=== PATIENT | male | born 1950 | race Caucasian/White ===

== ENCOUNTER 2017-08-22 07:57 | Inpatient (IN) | payer BC ==
[2017-07-21 09:13] VITALS: BMI 35.0
--- NOTE | 2017-07-21 09:54 | PAT Medication Instructions ---
Service Date Jul 21, 2017. Current Home Medication List Lisinopril (Zestril), 20 MG PO QAM Medication Instructions For Your Scheduled Surgery - Hold the following medications the morning of surgery: Lisinopril (Zestril), 20 MG PO QAM If you have any questions please call us at [phone] or [phone] or [phone]
--- NOTE | 2017-07-21 10:35 | DIAGNOSTIC IMAGING REPORT ---
CHEST 2 VIEWS ROUTINE CLINICAL HISTORY: PAT preoperative evaluation COMPARISON STUDY: No previous studies for comparison. FINDINGS: The bones soft tissues and hemidiaphragms are normal. The cardiomediastinal silhouette is normal. The lungs are clear. The pulmonary vasculature is normal. Slight interstitial prominence possibly chronic. IMPRESSION: Chronic change. No acute process. The above report was generated using voice recognition software. It may contain grammatical, syntax or spelling errors. Electronically signed by: Celestino Cantrell M.D. 07/21/2017 10:34 AM Dictated Date/Time: 07/21/2017 10:33 AM
[2017-07-21 11:15] LABS: BASO % 0.6 %; BASO ABS # 0.05 K/uL (0-0.2); EOS % 1.8 %; EOS ABS # 0.16 K/uL (0-0.5); HEMATOCRIT 46.6 % (42-52); HEMOGLOBIN 16.3 g/dL (14.0-18.0); IG# 0.04 K/uL (0.00-0.02); LYMPH % 26.5 %; LYMPH ABS # 2.31 K/uL (1.2-3.4); MEAN CELL VOLUME 93.8 fL (80-100); MEAN CORPUSCULAR HEMOGLOBIN 32.8 pg (25-34); MEAN PLATELET VOLUME 9.6 fL (7.4-10.4); MONO % 8.1 %; MONO ABS # 0.71 K/uL (0.11-0.59); NEUT % 62.5 %; NEUT ABS # 5.45 K/uL (1.4-6.5); PLATELET COUNT 264 K/uL (130-400); RED CELL DISTRIBUTION WIDTH CV 14.1 % (11.5-14.5); WHITE BLOOD COUNT 8.72 K/uL (4.8-10.8)
[2017-07-21 11:25] LABS: PTT PATIENT 27.8 SECONDS (21.0-31.0)
[2017-07-21 11:30] LABS: CALCIUM 9.2 mg/dl (8.5-10.1); POTASSIUM 4.7 mmol/L (3.5-5.1)
[2017-07-21 11:57] LABS: HEMOGLOBIN A1C 5.8 % (4.5-5.6)
--- NOTE | 2017-08-10 11:11 | History and Physical ---
History & Physical Date Aug 10, 2017. Chief Complaint Right knee pain History of Present Illness Mr Thomas is a 66 year old male who complains of right knee pain. He presents with pain and swelling on the right side. He states that the symptoms have been acute on chronic. Patient reports he had a previous football injury when he was a teenager to his right knee and he also reports a new injury to his right knee. The symptoms occur intermittently. The problem is fluctuating. Currently the patient states that the symptoms are moderate-severe. The pain is described as aching, discomforting and throbbing. The symptoms occur intermittently. The symptoms are aggravated by daily activities, ascending stairs, descending stairs , driving, first steps while awake, movement, repetitive activities, sleeping on the affected side and walking. Edmond states that the symptoms are relieved by no specific activity. In addition to right knee pain the patient is also experiencing decreased mobility, difficulty bending, limping, nighttime awakening, pain, stiffness, tenderness and weakness. Pertinent negatives include chills and fever. The patient has had a previous x-ray. Prior NSAIDs include ibuprofen. Patient has had previous therapy. Patient has had arthroscopic surgery. 12/01/1995 Dr. Mike Mccollum performed right knee arthroscopy with PMM, PLM and Removal of loose bodies. Past Medical/Surgical History Hypertension previous right knee scope 1995 ear surgery 2009 Additional History Hypertension: Yes Allergies Coded Allergies: No Known Allergies (Unverified , 07/21/17) Home Medications Scheduled Lisinopril (Zestril), 20 MG PO QAM Physical Examination Skin: warm/dry, no rash Eyes: normal inspection, EOMI, sclerae normal ENT: normal ENT inspection, pharynx normal Head: normocephalic, atraumatic Neck: supple, no adenopathy, trachea midline Respiratory/Chest: lungs clear, normal breath sounds, no respiratory distress Cardiovascular: regular rate, rhythm, no edema, no murmur Abdomen / GI: normal bowel sounds, non tender Addiitonal Comments: Right Knee Physical Exam Exam Findings Details Ankle ROM R * Active ROM - Factors: normal, Description: active pain free range of motion. Hip ROM R * Active ROM - Factors: normal, Description: active pain free range of motion. Passive ROM - Factors: normal, Description: passive pain free range of motion. Knee ROM R * Active ROM - Flexion: 100 degrees, Extension: 5 degrees, Factors: pain, Description: Active painful ROM. Strength LE Normal Strength Description - Normal lower extremity: Bilateral. Knee * Inspection - Gait: Limp. Alignment - Right: varus. Ecchymosis - Right: negative. Effusion - Right: mild. Swelling - Right: mild. Maximum tenderness - Right: Medial Joint Line, proximal fibula. Patella exam - Crepitation - Right: mild. Patella position - Right: neutral. [facility]'s - lateral - Right: Positive. Tha's - medial - Right: Positive. Knee Normal Inspection - Atrophy - Right: Absent. Skin - Right: Normal. Patella exam - Apprehension - Right: Negative. Q-angle - Right: Normal. Posterior drawer - Right: Negative. Anterior drawer - Right: Negative. Valgus stress - Right: Negative. Varus stress - Right: Negative. Extensor lag - Right: Normal. Neurovascular LE Normal Neurovascular examination including reflexes, sensation , and pulses is within normal limits. Right Knee X-Rays: advanced degenerative changes noted right knee with complete loss joint space medial compartment and patellofemoral joint, osteophyte formation noted, subchondral sclerosis. also noted healed proximal fibula fracture. Diagnosis Right knee osteoarthritis -Further care discussed with patient and at this point in time has failed conservative measures and would like to proceed with a right total knee replacement. Plan on discharge will be home with home health physical therapy. DVT prophalaxis with TEDs, SCDs and will also place on aspirin 81 mg p.o. b.i.d. for a month postop. Patient will have follow up appointment in our office two weeks post op for staple/suture removal and re-evaluation. Patient otherwise has no other questions or concerns. Hypertension
[2017-08-22] VITALS (8 sets, daily range): BP systolic 115–156; BP diastolic 70–88; PULSE 61–96; TEMP 36.3–36.8; O2SAT 96–98; Ht 182.9 cm; Wt 109.0 kg
[~2017-08-22] VITALS: Ht 182.9 cm; Wt 109.0 kg
[2017-08-22] MEDS: TRANEXAMIC ACID INJ 1,000 MG x 2 Bags IV SCH ×4 (06:00→06:30)
--- NOTE | 2017-08-22 07:14 | History & Physical Bridge Note ---
H&P Re-Evaluation Bridge Note: I have examined the patient, reviewed the History & Physical and in the interval since the performance of the History & Physical I have noted the following changes of clinical significance: No changes noted
[~2017-08-22 07:57] MED LIST: ACETAMINOPHEN 500 MG TAB PO SCH; BUPIVACAINE 0.25% 30 ML VIAL ONE; BUPIVACAINE 0.5 % 5 MG/1 ML PF 10ML VIAL ONE; CEFAZOLIN 2000MG IV PUSH 15 ML IV SCH; CeleBREX 200 MG CAP PO SCH; DEXAMETHASONE 4 MG TAB PO SCH; GABAPENTIN 600 MG PO SCH; LACTATED RINGER'S 1000ML 1,000 ML IV SCH; LACTATED RINGER'S 1000ML 500 ML IV SCH; LISI-725 PO; METOCLOPRAMIDE HCL 10 MG TAB PO SCH; ROPIVACAINE 5MG/ML 30 ML 150 MG, BUPIVACAINE 0.5% MPF INJ 30 ML, EpINEphrine HCL INJ 0.... INFIL SCH
[2017-08-22] MEDS ORDERED: MIDAZOLAM HCL 1 MG/ML 2ML VIAL ONE (08:12)
[2017-08-22] MEDS ORDERED: ATROPINE SULFATE 0.1 MG/ML 5ML SYR IV PRN (08:45)
[2017-08-22] MEDS ORDERED: EpHEDrine SULFATE INJ 50 MG/ML AMP IV PRN (08:45)
[2017-08-22] MEDS ORDERED: POVIDONE-IODINE OP SOLN 30 ML BTL ONE (09:02)
[2017-08-22] MEDS ORDERED: ORTHO JOINT ANESTHETIC ONE (09:02)
[2017-08-22] MEDS ORDERED: BACITRACIN 50000 UNIT VIAL ONE (09:02)
[2017-08-22] MEDS ORDERED: FENTANYL CITRATE INJ 50 MCG/1 ML 2 ML VIAL ONE (09:49)
--- NOTE | 2017-08-22 10:38 | [facility] Post Operative Brief Note ---
Immediate Operative Summary Operative Date Aug 22, 2017. Pre-Operative Diagnosis Right knee osteoarthritis Post-Operative Diagnosis Right knee osteoarthritis Procedure(s) Performed Right Total Knee Arthroplasty utilizing [employer] journey to patient match total knee arthroplasty size 7 femur 7 tibia 15 Poly [address] Baird Internist Medical Doctor Md Surgeon(s) Celestino Plascencia PA-C Estimated Blood Loss 5 ml Findings Consistent with Post-Op Diagnosis Specimens Permanent Specimen A: Right knee bone and tissue Anesthesia Type MAC Spinal Regional Complication(s) none Disposition Disposition: Recovery Room / PACU
[2017-08-22] MEDS ORDERED: LIDOCAINE HCL 2% 2 ML VIAL (20MG/ML) ONE (10:39)
[2017-08-22] MEDS ORDERED: PROPOFOL IV EMULSION 10 MG/ML 20 ML VIAL IV ONE (10:39)
--- NOTE | 2017-08-22 10:41 | [facility] Operative Report ---
Operative Report Operative Date Aug 22, 2017. Pre-Operative Diagnosis Right knee osteoarthritis Post-Operative Diagnosis Right knee osteoarthritis Procedure(s) Performed Right Total Knee Arthroplasty utilizing [employer] journey to patient match total knee arthroplasty size 7 femur 7 tibia 15 Poly [address] Baird [employer] Teacher Surgeon(s) Celestino Plascencia PA-C Estimated Blood Loss 5 ml Findings Patient presents with severe end-stage tricompartmental degenerative joint disease varus alignment x-rays will be able to subchondral sclerosis marginal osteophytes cystic changes bone the bone changes medial compartment patellofemoral compartment patient with no response to conservative therapy with physical therapy anti-inflammatories relative rest activity modification corticosteroid injections presents for total knee arthroplasty Specimens Permanent Specimen A: Right knee bone and tissue Anesthesia Type MAC Spinal Regional Complication(s) none Disposition Recovery Room / PACU Indications Patient presents with severe end-stage tricompartmental degenerative joint disease varus alignment bone the bone changes subchondral cystic changes sclerosis marginal osteophytes varus alignment no response to conservative therapy. Physical therapy anti-inflammatories relative rest activity medication cortical steroid injections Visco supplementation patient presents for total knee arthroplasty of thorough discussion regarding risk complications Description of Procedure After proper prepping and draping of the Right lower extremity anterior midline incision was made over the region of the extensor extensor mechanism after meticulous hemostasis was obtained and maintained in subcutaneous tissues a medial parapatellar incision was made The patella was subluxed lateralward the medial lateral gutter were cleaned from any hypertrophic synovitis and scar tissue of the distal femoral block was placed and the distal femoral osteotomy cut was made subsequently the chamfers anterior and posterior osteotomy cuts were made utilizing the 4-in-1 block the tibia was subsequently subluxed anteriorward medial and ateral meniscal remnants were excised in their entirety remnants of the anterior and posterior cruciate ligaments were excised in their entirety excellent exposure of the proximal tibia was obtained the tibial osteotomy guide was placed on the proximal tibial osteotomy cut was made once again the knee was irrigated with copious amounts of sterile saline solution the patella was subsequently everted lateralward thickened scar tissue around the patella was removed the patella was subsequently cut utilizing a freehand technique and was drilled prepared for final preparation and placement of patella socially flexion-extension gaps were checked and the equal and symmetric trials were placed to the appropriate femoral and tibial trials with poly-spacer being placed for equal flexion and extension gaps and full range of motion including extension to 0 and flexion to 140 the trial components after having been taken to recovery range of motion was subsequently removed meticulous hemostasis was obtained and maintained subsequently a knee block injection of joint cocktail including ropivacaine 0.5% 150 mg. Bupivacaine 0.5 % epinephrine 1-200,030 mL's toradol 30 mg dexamethasone 4 mg ketamine 10 mg clonidine 100 micrograms normal saline solution 30 mg was infiltrated into the soft tissues of the posterior knee medial lateral gutters and periosteal synovium special attention was paid to protect neurovascular structures at all times subsequently trial components having been removed the knee was irrigated with sterile saline solution. debris was removed the proximal tibia was subsequently prepared and was made ready for the placement of the tibial component tibial component was also cemented and tamped into position the femoral component was subsequently placed and cemented in the position the patellar component was subsequently cemented in position because hemostasis once again obtained and maintained wound having been thoroughly irrigated with debridement and debridement lavage was performed as well as a medial parapatellar incision closed with #1 Vicryl in interrupted fashion subcutaneous was closed with #2 Vicryl skin was closed with skin clips. PA-C was necessary for prepping and drapping as well as wound closure of deep fascia Sub cutaneous tissue and skin and was necessary for the case. A sterile compressive dressing was placed patient was taken to recovery in stable condition of report dictated by Oli I attest to the content of the Intraoperative Record and any orders documented therein. Any exceptions are noted below. I attest to the content of the Intraoperative Record and any orders documented therein. Any exceptions are noted below.
[2017-08-22] MEDS ORDERED: MoRPHine SULFATE 2 MG/ML CARP IV PRN ×2 (11:30→14:00)
[2017-08-22] MEDS ORDERED: SOD PHOSPHATE/SOD BIPHOSPHATE ENEMA 132 ML BTL PR PRN (11:30)
[2017-08-22] MEDS ORDERED: BISACODYL 10 MG SUPP PR PRN (11:30)
[2017-08-22] MEDS ORDERED: ONDANSETRON INJ 2 MG/ML 2 ML VIAL IV PRN (11:30)
[2017-08-22] MEDS ORDERED: MAGNESIUM HYDROXIDE SUSP 30 ML UDC PO PRN (11:30)
[2017-08-22] MEDS ORDERED: ALUMINUM/MAGNESIUM/SIMETH (MAALOX MAX) 30 ML UDC PO PRN (11:30)
[2017-08-22] MEDS ORDERED: KETOROLAC TROMETHAMINE 30 MG/ML VIAL IV. PRN (11:30)
[2017-08-22] MEDS ORDERED: ZOLPIDEM TARTRATE 5 MG TAB PO PRN (11:30)
--- NOTE | 2017-08-22 11:43 | DIAGNOSTIC IMAGING REPORT ---
RIGHT KNEE 2 VIEWS History: Right total knee arthroplasty. Degenerative arthritis. Postop. FINDINGS: The patient is status post a right total knee arthroplasty. The hardware is intact. Surgical drains are in place. There is a healing/healed fibular neck fracture.. IMPRESSION: Right total knee arthroplasty. No evidence for hardware complication. A healing/healed fibular neck fracture is noted. Electronically signed by: Chester Barth M.D. 08/22/2017 11:42 AM Dictated Date/Time: 08/22/2017 11:41 AM
--- NOTE | 2017-08-22 12:01 | Anesthesiology Progress Note ---
Anesthesia Post Op Note Date & Time Aug 22, 2017 at 12:00 Vital Signs Pain Intensity: 0 Vital Signs Past 12 Hours Date Time Temp Pulse Resp B/P (MAP) Pulse Ox O2 Delivery O2 Flow Rate FiO2 08/22/17 11:56 57 14 08/22/17 11:56 55 14 99 08/22/17 11:55 105/71 08/22/17 11:52 36.3 97 Nasal Cannula 2 08/22/17 11:51 57 17 97 08/22/17 11:51 58 17 08/22/17 11:50 108/62 08/22/17 11:46 59 18 08/22/17 11:46 60 18 98 08/22/17 11:45 108/63 08/22/17 11:43 58 18 97 08/22/17 11:43 57 18 08/22/17 11:40 115/67 08/22/17 11:38 60 17 96 08/22/17 11:38 59 17 08/22/17 11:37 61 18 97 08/22/17 11:37 62 18 08/22/17 11:35 106/67 08/22/17 11:32 59 17 99 08/22/17 11:32 58 17 08/22/17 11:30 102/66 08/22/17 11:27 65 17 100 08/22/17 11:27 64 17 08/22/17 11:25 108/67 08/22/17 11:22 36.3 64 16 109/71 98 Oxymask 10 08/22/17 11:22 73 15 08/22/17 11:22 72 15 109/71 100 08/22/17 08:31 36.7 71 20 156/88 98 Room Air Notes Mental Status: alert / awake / arousable, participated in evaluation Pt Amnestic to Procedure: Yes Nausea / Vomiting: adequately controlled Pain: adequately controlled Airway Patency, RR, SpO2: stable & adequate BP & HR: stable & adequate Hydration State: stable & adequate Neuraxial Anesthesia: was administered, sensory block is resolving Anesthetic Complications: no major complications apparent
[2017-08-22] MEDS ORDERED: MoRPHine SULFATE 10 MG/ML CARP/VIAL IV PRN (14:00)
[2017-08-22] MEDS ORDERED: MoRPHine SULFATE 4 MG/ML 1 ML CARP\\VIAL IV PRN (14:00)
[2017-08-22] MEDS: D5W AND 1/2NSS + 20MEQ KCL 1,000 ML IV SCH (15:04)
[2017-08-22] MEDS: ACETAMINOPHEN 500 MG TAB PO SCH ×2 (16:16→21:41)
[2017-08-22] MEDS: CEFAZOLIN IV 2,000 MG in SYRINGE 0 ML IV SCH (17:33)
[2017-08-22] MEDS: DOCUSATE SODIUM 100 MG CAP PO SCH (21:41)
[2017-08-22] MEDS: CeleBREX 200 MG CAP PO SCH (21:41)
[2017-08-22] MEDS: SENNA 8.6 MG TAB PO SCH (21:41)
[2017-08-22] MEDS: ASPIRIN 81 MG ECTAB PO SCH (21:42)
[2017-08-23] MEDS: D5W AND 1/2NSS + 20MEQ KCL 1,000 ML IV SCH ×2 (00:15→08:30)
[2017-08-23] MEDS: CEFAZOLIN IV 2,000 MG in SYRINGE 0 ML IV SCH (02:18)
[2017-08-23 02:25] VITALS: BP 121/73; PULSE 62; TEMP 36.7; O2SAT 95
[2017-08-23 06:08] LABS: HEMATOCRIT 36.5 % (42-52); MEAN CELL VOLUME 91.9 fL (80-100); MEAN CORPUSCULAR HEMOGLOBIN 32.7 pg (25-34); MEAN CORPUSCULAR HGB CONC 35.6 g/dl (32-36); MEAN PLATELET VOLUME 9.4 fL (7.4-10.4); PLATELET COUNT 221 K/uL (130-400); RED CELL DISTRIBUTION WIDTH CV 13.4 % (11.5-14.5); RED CELL DISTRIBUTION WIDTH SD 44.9 fL (36.4-46.3); WHITE BLOOD COUNT 15.63 K/uL (4.8-10.8)
[2017-08-23] MEDS: ACETAMINOPHEN 500 MG TAB PO SCH ×3 (06:16→20:41)
[2017-08-23 06:46] LABS: CALCIUM 8.5 mg/dl (8.5-10.1); CREATININE 1.12 mg/dl (0.60-1.40); POTASSIUM 4.2 mmol/L (3.5-5.1)
--- NOTE | 2017-08-23 07:47 | Orthopedic Progress Note ---
Orthopedic Progress Note Date of Service Aug 23, 2017. Subjective Post OP Day: 1 (right tka) Reports: feeling well, pain controlled w PO medications, Denies: complaints, chest pain, SOB, nausea / vomiting, light headedness, calf pain Objective calves soft nontender, N/V intact, capillary refill less than 2 sec., dressing C /D/I, A&O x3, toes mobile, hemovac drainage (250cc/8 hours) Date Time Temp Pulse Resp B/P (MAP) Pulse Ox O2 Delivery O2 Flow Rate FiO2 08/23/17 02:25 36.7 62 16 121/73 (89) 95 Room Air 08/23/17 00:05 Room Air 08/22/17 23:35 36.7 67 16 122/70 (87) 97 Room Air 08/22/17 19:20 36.7 96 17 120/70 (87) 96 Room Air 08/22/17 15:35 36.8 71 16 115/70 (85) 97 Room Air 08/22/17 15:08 36.6 71 18 142/88 (106) 97 Room Air 08/22/17 15:02 Room Air 08/22/17 14:10 36.5 68 17 132/82 (99) 98 Nasal Cannula 2.0 08/22/17 13:05 36.3 61 17 121/76 (91) 98 Nasal Cannula 2.0 08/22/17 12:10 36.5 62 17 122/70 (87) 98 Nasal Cannula 2.0 08/22/17 12:10 Nasal Cannula 2.0 08/22/17 12:10 Nasal Cannula 2.0 08/22/17 11:56 57 14 08/22/17 11:56 55 14 99 08/22/17 11:55 105/71 08/22/17 11:52 36.3 97 Nasal Cannula 2 08/22/17 11:51 57 17 97 08/22/17 11:51 58 17 08/22/17 11:50 108/62 08/22/17 11:46 59 18 08/22/17 11:46 60 18 98 08/22/17 11:45 108/63 08/22/17 11:43 58 18 97 08/22/17 11:43 57 18 08/22/17 11:40 115/67 08/22/17 11:38 60 17 96 08/22/17 11:38 59 17 08/22/17 11:37 61 18 97 08/22/17 11:37 62 18 08/22/17 11:35 106/67 08/22/17 11:32 59 17 99 08/22/17 11:32 58 17 08/22/17 11:30 102/66 08/22/17 11:27 65 17 100 08/22/17 11:27 64 17 08/22/17 11:25 108/67 08/22/17 11:22 36.3 64 16 109/71 98 Oxymask 10 08/22/17 11:22 73 15 08/22/17 11:22 72 15 109/71 100 08/22/17 08:31 36.7 71 20 156/88 98 Room Air Laboratory Results 24 Hours: Test 08/23/17 05:55 Hematocrit 36.5 % Hemoglobin 13.0 g/dL Prothromb Time International Ratio 1.0 Prothrombin Time 10.9 SECONDS Assessment & Plan Assessment: POD #1 s/p Right TKA -pt/ot -dvt proph with nena/scd/asa -plan for d/c home tomorrow with OPPT @ [facility] -has healed proximal fibula fracture on xray Discharge Planning Discharge Planning: home with oppt DVT Prophylaxis: TEDs, SCDs, ASA Therapy: Physical Therapy
--- NOTE | 2017-08-23 07:48 | Discharge Instructions ---
Discharge Instructions Date of Service Aug 23, 2017. Admission Reason for Admission: Right Knee Osteoarthritis Discharge Discharge Diagnosis / Problem: right TKA Discharge Goals Goal(s): Decrease discomfort, Improve function, Increase independence Activity Recommendations Activity Limitations: as noted below Weightbearing Status: Right weightbearing (as tolerated) . Instructions / Follow-Up Instructions / Follow-Up ACTIVITY RECOMMENDATIONS: SELF CARE INSTRUCTIONS AFTER TOTAL KNEE REPLACEMENT A. You may need to continue a physical therapy program after discharge from the hospital. There are several options available to you. Your doctor will assist you in selecting the best one for you. 1. An out-patient facility 2 to 3 times a week for therapy or home therapy. 2. Continue working on all exercises taught to you in the hospital. Your goals should be to increase bending of your knee to 90 degrees and beyond and to fully straighten your knee. B. You may progress at your own pace from walking with a walker or crutches to a cane; then to no assistive devices. C. Make walking a part of your daily routine. Be up as much as comfortable with rest periods throughout the day. Rest with leg elevation is very important. Use the ice wrap frequently for the first 3-4 weeks. D. There are no restrictions on activities. You may ride in a car, shop, participate in crm solution architect and all social activities. E. Wear the long elastic stockings (YUE hose) 20 hours a day for 2 weeks after surgery. They can be removed several times a day for laundering and for a bath. F. You may shower, no tub baths until cleared by your doctor. SPECIAL CARE INSTRUCTIONS: VERY IMPORTANT TO READ AND REVIEW A. There are a few signs you need to watch for after you are home. Call [facility] if you notice any of the followin. Increased severe knee pain. Some pain is expected especially when you exercise. 2. Increased swelling in your leg or knee; pain or swelling of the calf muscle in either lower leg. 3. Any fluid drainage from the incision. 4. Shortness of breath or chest pain. B. Please call [facility] at if you have any concerns or questions about your operation or recovery. The doctor or his nurse will return your call promptly. C. You must take antibiotics before dental work, bladder, bowel or other surgery. Your doctor will provide you with a permanent care to carry describing this precaution. IMPORTANT: * REMEMBER TO TAKE ASPIRIN, 81 MG, TWICE DAILY FOR 4 WEEKS UNLESS OTHERWISE DIRECTED. THIS IS YOUR BLOOD THINNER. * HIGH RISK PATIENTS MAY BE PRESCRIBED A STRONGER BLOOD THINNER. THIS WILL BE PROVIDED AT DISCHARGE. * CALL IF INCREASED PAIN, REDNESS, DRAINAGE OR FEVER GREATER THAT 101. * WEAR YUE HOSE 20 HOURS PER DAY FOR 2 WEEKS. * DERMABOND Prineo- This is a mesh tape dressing that is covered with glue. It should remain in place until the incision is properly healed, usually 10-14 days. This dressing is designed to naturally slough off. You may trim the excess mesh tape as it peels off. Incision may be briefly wet in a shower. Dry immediately by blotting with a clean, dry towel. Do not bath or swim until instructed by your doctor. Do not scratch, rub, or pick at the dressing. Do not apply any topical ointments or lotions until dressing is completely removed and/or instructed by your doctor. There may be a small piece of suture material at one end of your incision. Do not pull or trim this. If it is bothersome or catching on clothing, you may cover it with a band-aid. FOLLOW UP VISIT: If appointment is not already scheduled: Please call [facility] to make a follow-up appointment for 2 weeks after your surgery at . Current Hospital Diet Patient's current hospital diet: Regular Diet Discharge Diet Recommended Diet: Regular Diet Procedures Procedures Performed: Right Total Knee Arthroplasty utilizing [employer] journey to patient match total knee arthroplasty size 7 femur 7 tibia 15 Poly 38 oval patella Pending Studies Studies pending at discharge: no Laboratory Results Hemoglobin A1c Test 07/21/17 10:05 Range/Units Estimated Average Glucose 120 mg/dl Hemoglobin A1c 5.8 H 4.5-5.6 % Medical Emergencies . Who to Call and When: Medical Emergencies: If at any time you feel your situation is an emergency, please call 911 immediately. . Non-Emergent Contact Non-Emergency issues call your: Primary Care Provider, Surgeon . "Provider Documentation" section prepared by Celestino Plascencia. . [place] Drug Monitoring Program Search Results: patient reviewed within database, no issues identified
[2017-08-23 08:07] VITALS: BP 113/70; PULSE 69; TEMP 36.9; O2SAT 97
[2017-08-23] MEDS: ASPIRIN 81 MG ECTAB PO SCH ×2 (08:28→20:40)
[2017-08-23] MEDS: MULTIVITAMIN TAB PO SCH (08:29)
[2017-08-23] MEDS: CeleBREX 200 MG CAP PO SCH ×2 (08:29→20:40)
[2017-08-23] MEDS: DOCUSATE SODIUM 100 MG CAP PO SCH ×2 (08:29→20:40)
[2017-08-23] MEDS: TRAMADOL HCL 50 MG TAB PO PRN ×2 (08:34→09:25)
--- NOTE | 2017-08-23 10:50 | Anesthesiology Progress Note ---
Anesthesia Post Op Note Date & Time Aug 23, 2017 at 10:50 Vital Signs Vital Signs Past 12 Hours Date Time Temp Pulse Resp B/P (MAP) Pulse Ox O2 Delivery O2 Flow Rate FiO2 08/23/17 08:07 36.9 69 18 113/70 (84) 97 Room Air 08/23/17 07:15 Room Air 08/23/17 02:25 36.7 62 16 121/73 (89) 95 Room Air 08/23/17 00:05 Room Air 08/22/17 23:35 36.7 67 16 122/70 (87) 97 Room Air Notes Mental Status: alert / awake / arousable, participated in evaluation Pt Amnestic to Procedure: Yes Nausea / Vomiting: adequately controlled Pain: adequately controlled Airway Patency, RR, SpO2: stable & adequate BP & HR: stable & adequate Hydration State: stable & adequate Neuraxial Anesthesia: sensory block resolved Anesthetic Complications: no major complications apparent
[2017-08-23 11:06] VITALS: BP 122/70; PULSE 78; TEMP 36.6; O2SAT 97
[2017-08-23] MEDS: OXYCODONE HCL IR 5 MG TAB (IMMEDIATE RELEASE) PO PRN ×3 (11:08→22:17)
[2017-08-23 15:21] VITALS: BP 119/78; PULSE 63; TEMP 36.7; O2SAT 98
[2017-08-23] MEDS: SENNA 8.6 MG TAB PO SCH (20:40)
[2017-08-23 23:33] VITALS: BP 111/68; PULSE 63; TEMP 36.7; O2SAT 97
[2017-08-24] MEDS: ACETAMINOPHEN 500 MG TAB PO SCH (05:47)
--- NOTE | 2017-08-24 07:17 | Orthopedic Progress Note ---
Orthopedic Progress Note Date of Service Aug 24, 2017. Subjective Post OP Day: 2 Reports: feeling well, pain controlled w PO medications, Denies: complaints, chest pain, SOB, nausea / vomiting, light headedness, calf pain Objective calves soft nontender, N/V intact, capillary refill less than 2 sec., incision C /D/I, A&O x3, toes mobile Date Time Temp Pulse Resp B/P (MAP) Pulse Ox O2 Delivery O2 Flow Rate FiO2 08/23/17 23:33 36.7 63 16 111/68 (82) 97 Room Air 08/23/17 19:30 Room Air 08/23/17 15:21 36.7 63 16 119/78 (92) 98 Room Air 08/23/17 11:06 36.6 78 19 122/70 (87) 97 Room Air 08/23/17 08:07 36.9 69 18 113/70 (84) 97 Room Air Assessment & Plan Assessment: POD #2 s/p Right TKA -pt/ot -dvt proph with nena/scd/asa -plan for d/c home after PT today with OPPT @ [facility] -has healed proximal fibula fracture on xray Discharge Planning Discharge Planning: home with oppt DVT Prophylaxis: TEDs, SCDs, ASA Therapy: Physical Therapy
[2017-08-24 07:20] VITALS: BP 158/88; PULSE 72; TEMP 37.1; O2SAT 95
[2017-08-24] MEDS ORDERED: CLC100 PO (07:22)
[2017-08-24] MEDS ORDERED: ACET-24 PO (07:22)
[2017-08-24] MEDS ORDERED: ASPEC81 PO (07:22)
[2017-08-24] MEDS ORDERED: CLB200 PO (07:22)
[2017-08-24] MEDS ORDERED: RXC5 PO (07:22)
[2017-08-24] MEDS ORDERED: ONDA-170 PO (07:22)
--- NOTE | 2017-08-24 07:24 | Discharge Summary ---
Orthopedic Discharge Summary Admission Date/Reason Aug 22, 2017 at 10:51 Right Knee Osteoarthritis. Discharge Date/Disposition Aug 24, 2017 Home (OPPT @ [facility]) Diagnosis Principal Diagnosis: right knee osteoarthritis Secondary Diagnoses/Problems: Hypertension Procedure(s) Performed Right Total Knee Arthroplasty utilizing [employer] journey to patient match total knee arthroplasty size 7 femur 7 tibia 15 Poly 38 oval patella Consultations NONE Medication Reconciliation New Medications: Ondansetron Hcl (Zofran) 8 Mg Tab 8 MG PO Q8 PRN for Nausea, #20 TAB Acetaminophen (Sb Non-Aspirin Extra Stre) 500 Mg Tab 1000 MG PO Q8, #63 TAB Aspirin (Aspirin EC Low Dose) 81 Mg Ectab 81 MG PO BID for 30 Days, #60 TABS Celecoxib (Celebrex) 200 Mg Cap 200 MG PO BID for 30 Days, #60 CAP Docusate Sodium (Docusate Sodium) 100 Mg Cap 100 MG PO BID for 10 Days, #20 CAP Oxycodone HCl (Oxycodone HCl) 5 Mg Tab 5-10 MG PO Q4H PRN for Pain, #60 TAB Continued Medications: Lisinopril (Zestril) 20 Mg Tab 20 MG PO QAM, TAB Admission Physical Exam As per Admitting History & Physical. Hospital Course Patient was a same day admission after undergoing a successful right TKA. He tolerated the procedure well. Post-operatively, his activity was progressed and well tolerated. Please refer to daily progress notes and PT notes for complete details. After exam on 08/24/17, patient felt to be stable for discharge home with outpatient PT at [facility] office. Patient will f/u in the office in 2 weeks for further evaluation including x-rays and incision check, sooner if having any issues or concerns. Below are pertinent labs/studies during their hospital stay: Last Vital Signs Documentation Date Time Temp Pulse Resp B/P (MAP) Pulse Ox O2 Delivery O2 Flow Rate FiO2 08/24/17 07:20 37.1 72 19 158/88 (111) 95 Room Air 08/22/17 14:10 2.0 Last Resulted CBC 08/23/17 05:55 Last Resulted BMP 08/23/17 05:55 Discharge Instructions ACTIVITY RECOMMENDATIONS: SELF CARE INSTRUCTIONS AFTER TOTAL KNEE REPLACEMENT A. You may need to continue a physical therapy program after discharge from the hospital. There are several options available to you. Your doctor will assist you in selecting the best one for you. 1. An out-patient facility 2 to 3 times a week for therapy or home therapy. 2. Continue working on all exercises taught to you in the hospital. Your goals should be to increase bending of your knee to 90 degrees and beyond and to fully straighten your knee. B. You may progress at your own pace from walking with a walker or crutches to a cane; then to no assistive devices. C. Make walking a part of your daily routine. Be up as much as comfortable with rest periods throughout the day. Rest with leg elevation is very important. Use the ice wrap frequently for the first 3-4 weeks. D. There are no restrictions on activities. You may ride in a car, shop, participate in retail department reset and all social activities. E. Wear the long elastic stockings (YUE hose) 20 hours a day for 2 weeks after surgery. They can be removed several times a day for laundering and for a bath. F. You may shower, no tub baths until cleared by your doctor. SPECIAL CARE INSTRUCTIONS: VERY IMPORTANT TO READ AND REVIEW A. There are a few signs you need to watch for after you are home. Call [facility] if you notice any of the followin. Increased severe knee pain. Some pain is expected especially when you exercise. 2. Increased swelling in your leg or knee; pain or swelling of the calf muscle in either lower leg. 3. Any fluid drainage from the incision. 4. Shortness of breath or chest pain. B. Please call [facility] at if you have any concerns or questions about your operation or recovery. The doctor or his nurse will return your call promptly. C. You must take antibiotics before dental work, bladder, bowel or other surgery. Your doctor will provide you with a permanent care to carry describing this precaution. IMPORTANT: * REMEMBER TO TAKE ASPIRIN, 81 MG, TWICE DAILY FOR 4 WEEKS UNLESS OTHERWISE DIRECTED. THIS IS YOUR BLOOD THINNER. * HIGH RISK PATIENTS MAY BE PRESCRIBED A STRONGER BLOOD THINNER. THIS WILL BE PROVIDED AT DISCHARGE. * CALL IF INCREASED PAIN, REDNESS, DRAINAGE OR FEVER GREATER THAT 101. * WEAR YUE HOSE 20 HOURS PER DAY FOR 2 WEEKS. * DERMABOND Prineo- This is a mesh tape dressing that is covered with glue. It should remain in place until the incision is properly healed, usually 10-14 days. This dressing is designed to naturally slough off. You may trim the excess mesh tape as it peels off. Incision may be briefly wet in a shower. Dry immediately by blotting with a clean, dry towel. Do not bath or swim until instructed by your doctor. Do not scratch, rub, or pick at the dressing. Do not apply any topical ointments or lotions until dressing is completely removed and/or instructed by your doctor. There may be a small piece of suture material at one end of your incision. Do not pull or trim this. If it is bothersome or catching on clothing, you may cover it with a band-aid. FOLLOW UP VISIT: If appointment is not already scheduled: Please call [facility] to make a follow-up appointment for 2 weeks after your surgery at .
[2017-08-24] MEDS: DOCUSATE SODIUM 100 MG CAP PO SCH (09:33)
[2017-08-24] MEDS: ASPIRIN 81 MG ECTAB PO SCH (09:33)
[2017-08-24] MEDS: MULTIVITAMIN TAB PO SCH (09:33)
[2017-08-24] MEDS: CeleBREX 200 MG CAP PO SCH (09:33)
[2017-08-24] MEDS: OXYCODONE HCL IR 5 MG TAB (IMMEDIATE RELEASE) PO PRN (09:36)
[2017-08-24 10:41] VITALS: BP 158/88; PULSE 72; TEMP 37.1; O2SAT 95
[2017-08-24] MEDS: TRAMADOL HCL 50 MG TAB PO PRN (12:05)
== END 2017-08-24 12:10 | disposition home or self-care (01) | DRG 470 ==
LOC: C.ACU 07:57 → C.3E 10:51 → ENRESERV 11:49
PROVIDERS: ADMIT Orthopaedic Surgery; ATTEND Orthopaedic Surgery
PROC: 0SRC0J9 Replacement of Right Knee Joint with Synthetic Substitute, Cemented, Open Approach (ICD-10-PCS; principal; 2017-08-22 09:45)
DX: M17.11 Unilateral primary osteoarthritis, right knee (principal); M21.161 Varus deformity, not elsewhere classified, right knee; I10 Essential (primary) hypertension; Z79.899 Other long term (current) drug therapy